=== PATIENT | female | born 1945 | race Caucasian/White ===

== ENCOUNTER 2020-08-29 07:16 | Observation (INO) | payer MEDICARE, BC ==
[~2020-08-29] VITALS: Ht 165.1 cm; Wt 97.1 kg
[2020-08-29] MEDS ORDERED: ONDANSETRON 4MG/2ML VIAL IV ONE (07:40)
[2020-08-29] MEDS ORDERED: NS 1,000 ML IV SCH (07:40)
[2020-08-29] MEDS ORDERED: fentaNYL 100 MCG/2 ML INJECTION (J3010) IV ONE ×2 (07:40→08:50)
[2020-08-29] MEDS ORDERED: FAMOTIDINE INJ 20MG/2ML VIAL (S0028 PER 1) IVP ONE (07:40)
[2020-08-29 08:19] LABS: BASO % 0.4 % (0.0-1.0); EOS % 0.1 % (0.0-3.0); HEMATOCRIT 35.5 % (36.0-47.0); HEMOGLOBIN 11.7 g/dl (12.0-15.5); LYMPH # 0.6 10^3/uL (1.5-5.0); LYMPH % 5.3 % (24.0-44.0); MEAN CORPUSCULAR HEMOGLOBIN 32.2 pg (27.0-33.0); MEAN CORPUSCULAR VOLUME 97.8 fl (80.0-96.0); MONO # 0.2 10^3/uL (0.0-0.8); MONO % 1.7 % (2.0-8.0); NEUTROPHILS # 10.2 10^3/uL (1.5-8.5); NEUTROPHILS % 91.7 % (36.0-66.0); PLATELET COUNT, AUTOMATED 191 10^3/uL (150-450); RED BLOOD COUNT 3.63 10^6/uL (4.00-5.40); WHITE BLOOD COUNT 11.1 10^3/uL (4.0-10.0)
[2020-08-29] MEDS ORDERED: ULOR80TA PO (08:41)
[2020-08-29] MEDS ORDERED: CARV25TA PO (08:41)
[2020-08-29] MEDS ORDERED: CLONI1TA PO (08:41)
[2020-08-29] MEDS ORDERED: PANT40TA29 PO (08:41)
[2020-08-29] MEDS ORDERED: ATOR40TA75 PO (08:41)
[2020-08-29] MEDS ORDERED: ECOT81TA5 PO (08:41)
[2020-08-29] MEDS ORDERED: AMLO1TAB25 PO (08:41)
[2020-08-29] MEDS ORDERED: [UNRECOGNIZED DRUG - OTHER] OU (08:41)
[2020-08-29] MEDS ORDERED: B-12100021 PO (08:41)
[2020-08-29] MEDS ORDERED: FLUO10CA16 PO (08:41)
[2020-08-29] MEDS ORDERED: THYR60TA PO (08:41)
[2020-08-29] MEDS ORDERED: TELM1TAB37 PO (08:41)
[2020-08-29] MEDS ORDERED: BUPR150T5 PO (08:41)
[2020-08-29 08:45] LABS: ALBUMIN 4.1 GM/DL (3.2-5.2); BILIRUBIN,DIRECT 0.1 MG/DL (0.0-0.2); BILIRUBIN,TOTAL 0.5 MG/DL (0.2-1.0); TOTAL PROTEIN 7.8 GM/DL (6.4-8.2)
[2020-08-29] MEDS ORDERED: ISOVUE-370 76% 100ML VIAL As Ordered ONE (08:51)
--- NOTE | 2020-08-29 09:41 | REP ---
INDICATION: abd pain. COMPARISON: None TECHNIQUE: Axial contrast-enhanced images from the lung bases to the pubic symphysis using 100 cc Isovue 370 intravenous contrast material. Coronal and sagittal reformations obtained.. This CT examination was performed using the following dose reduction techniques: Automated exposure control, adjustment of mA and/or kv according to the patient's size, and the use of iterative reconstruction technique. FINDINGS: Liver, spleen, pancreas, gallbladder, and bilateral adrenal glands are normal. Right kidney includes 2.6 cm cyst. Left kidney includes 1 cm cyst and 13 mm intrarenal calculus adjacent to a small area of cortical scarring. Mild bilateral perinephric stranding is likely chronic although correlation with urinalysis is recommended to exclude pyelonephritis. The enteric system including stomach, small, and large bowel appears normal. No evidence for obstruction or acute inflammatory process. Few scattered colonic and sigmoid diverticula noted without acute diverticulitis. Pelvis demonstrates normal bladder and evidence for prior hysterectomy. No ascites. No free air. No intraperitoneal or retroperitoneal adenopathy. Atherosclerotic changes to the aorta without aneurysm or dissection. Musculoskeletal structures are intact and without acute osseous abnormality. IMPRESSION: 1. No obvious acute abdominopelvic pathology appreciated. 2. Renal changes as described above likely chronic although correlation with urinalysis may be warranted to exclude pyelonephritis. <Electronically signed by Allan Naylor > 08/29/20 0937
[2020-08-29] MEDS ORDERED: METOCLOPRAMIDE INJ 10MG/2ML VIAL (J2765 PER 1) IV ONE (12:20)
[2020-08-29] MEDS ORDERED: NS 1,000 ML IV ONE (15:55)
[2020-08-29] MEDS ORDERED: BUPR150T12 PO (16:07)
[2020-08-29] MEDS ORDERED: PANTOPRAZOLE 40MG VIAL (C9113 PER 1) IV ONE (16:25)
[2020-08-29] MEDS ORDERED: CARVedilol 12.5 MG TAB PO ONE (16:25)
[2020-08-29] MEDS ORDERED: GI COCKTAIL 50ML BTL(HYOSCYAMINE/MAALOX/LIDOCAINE VISCOUS)(1:3:1) PO PRN (16:25)
[2020-08-29] MEDS ORDERED: SUCRALFATE SUSP 1GM/10ML UD PO ONE (16:25)
[2020-08-29] MEDS ORDERED: GI COCKTAIL 50ML BTL(HYOSCYAMINE/MAALOX/LIDOCAINE VISCOUS)(1:3:1) PO ONE (16:25)
[2020-08-29] MEDS ORDERED: PERCOCET 5MG/325MG TAB PO PRN (16:30)
[2020-08-29] MEDS ORDERED: HYDROMORPHONE HCL 0.5 MG/ 0.5 ML SYRINGE (J1170 PER 1) IV ONE (16:30)
[2020-08-29] MEDS ORDERED: ENOXAPARIN 40MG/0.4ML SYRINGE (J1650 PER 10MG) SC ONE (16:30)
[2020-08-29] MEDS ORDERED: PERCOCET 5MG/325MG TAB PO ONE (16:30)
[2020-08-29] MEDS ORDERED: NALOXONE INJ 0.4MG/1ML VIAL (J2310 PER 1MG) IV PRN (16:30)
--- NOTE | 2020-08-29 17:02 | ECGEPIP ---
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
--- NOTE | 2020-08-29 17:17 | REP ---
INDICATION: epigastric abd pain COMPARISON: None. TECHNIQUE: PA and lateral. FINDINGS: The mediastinum and cardiac silhouette are normal. The lung gage are clear and without acute consolidation, effusion, or pneumothorax. The skeletal structures are intact and normal. IMPRESSION: No acute cardiopulmonary process. <Electronically signed by Allan Naylor > 08/29/20 [id number]
[2020-08-29] MEDS ORDERED: ALLE12TA31 PO (17:49)
[2020-08-29] MEDS ORDERED: TRAM50TA2 PO (17:49)
[2020-08-29] MEDS ORDERED: SODI3.5O3 OU (17:49)
[2020-08-29] MEDS ORDERED: ONDANSETRON 4MG/2ML VIAL IV PRN (19:45)
[2020-08-29] MEDS ORDERED: KCL 10MEQ IN D5/0.45NS 1000ML 1,000 ML IV SCH (20:00)
[2020-08-29] MEDS: SUCRALFATE 1 GM TAB PO SCH ×2 (21:00→22:53)
[2020-08-29] MEDS: PROMETHAZINE INJ 25 MG/ML VIAL (J2550) IV SCH ×2 (22:52→23:00)
[2020-08-29 22:53] VITALS: BP 180/80
[2020-08-29] MEDS: KETOROLAC 30 MG/ML 1ML VIAL IV SCH (23:44)
[2020-08-29] MEDS: METOCLOPRAMIDE INJ 10MG/2ML VIAL (J2765 PER 1) IV SCH (23:45)
[2020-08-30] MEDS: PANTOPRAZOLE 40MG VIAL (C9113 PER 1) IV SCH ×2 (01:01→08:54)
[2020-08-30] MEDS: METOCLOPRAMIDE INJ 10MG/2ML VIAL (J2765 PER 1) IV SCH ×3 (01:22→14:00)
[2020-08-30] MEDS: CARVedilol 12.5 MG TAB PO SCH ×2 (01:23→08:57)
[2020-08-30 02:00] VITALS: BP 164/74
[2020-08-30] MEDS: KETOROLAC 30 MG/ML 1ML VIAL IV SCH ×3 (02:00→14:00)
[2020-08-30] MEDS: PROMETHAZINE INJ 25 MG/ML VIAL (J2550) IV SCH (05:40)
[2020-08-30] MEDS ORDERED: PROMETHAZINE 25 MG TAB PO PRN (05:55)
[2020-08-30 06:00] VITALS: BP 156/55
[2020-08-30 07:13] LABS: HEMATOCRIT 31.3 % (36.0-47.0); HEMOGLOBIN 10.2 g/dl (12.0-15.5); MEAN CORPUSCULAR HEMOGLOBIN 32.6 pg (27.0-33.0); MEAN CORPUSCULAR HGB CONC 32.6 g/dl (32.0-36.5); PLATELET COUNT, AUTOMATED 147 10^3/uL (150-450); RED BLOOD COUNT 3.13 10^6/uL (4.00-5.40); WHITE BLOOD COUNT 10.4 10^3/uL (4.0-10.0)
[2020-08-30 07:40] LABS: CALCIUM LEVEL 8.1 MG/DL (8.8-10.2); CREATININE FOR GFR 1.06 MG/DL (0.55-1.30); GLOMERULAR FILTRATION RATE 53.7 (>39); POTASSIUM SERUM 3.6 MEQ/L (3.5-5.1)
[2020-08-30] MEDS ORDERED: NS 1,000 ML IV ONE (08:40)
[2020-08-30] MEDS ORDERED: traMADol 50 MG TAB PO PRN (08:40)
[2020-08-30] MEDS ORDERED: CARA1TAB6 PO (08:44)
[2020-08-30] MEDS: SUCRALFATE 1 GM TAB PO SCH ×2 (08:55→13:19)
[2020-08-30 08:56] VITALS: BP 156/55
[2020-08-30 08:58] LABS: C REACTIVE PROTEIN QUANTITATIV 0.32 MG/DL (0.00-0.30)
[2020-08-30] MEDS ORDERED: buPROPion **XL** TABLET 150MG (WELLBUTRIN XL) PO SCH (09:00)
[2020-08-30] MEDS ORDERED: ENOXAPARIN 40MG/0.4ML SYRINGE (J1650 PER 10MG) SC SCH (09:00)
[2020-08-30] MEDS ORDERED: cloNIDine 0.1MG TABLET PO SCH (09:00)
[2020-08-30] MEDS ORDERED: FLUoxetine 10 MG CAP PO SCH (09:00)
[2020-08-30] MEDS ORDERED: THYROID 30 MG TAB PO SCH (09:00)
[2020-08-30] MEDS ORDERED: PANTOPRAZOLE 40MG TAB (PROTONIX) PO SCH (09:00)
[2020-08-30 10:06] LABS: ERYTHROCYTE SEDIMENTATION RATE 36 mm/hr (0-30)
--- NOTE | 2020-08-30 11:29 | HPE ---
HISTORY AND PHYSICAL DATE OF ADMISSION: 08/29/2020 CHIEF COMPLAINT: Nausea, vomiting, diarrhea, abdominal pain. HISTORY OF PRESENT ILLNESS: This is a 74-year-old female visiting from [place] who presented to the emergency room with complaints of nausea and vomiting 10-15 times last night around midnight into this morning, with crampy abdominal pain that started in the epigastric region and radiates down to the bilateral lower quadrants accompanied with watery, nonbloody, nonmucusy diarrhea times one. Patient has had prior episode of nausea and vomiting in the past, but not to this extent. She describes epigastric discomfort as crampy and sharp at times, lasting for a few hours, unchanged by position. No medications taken at home, without fever or chills. Patient denies any bright red blood per rectum, melena or black tarry stools. Patient has not eaten any uncooked seafood or meat and no one in the family has similar symptoms. Patient has prior colonoscopy, which was unremarkable, from her technical solutions engineer in [place], named Dr. Santos, phone number is . On arrival, patient was found to be tachycardic, ventricular rate 121, but sinus rhythm, afebrile, slight white count of 11.1. CT abdomen and pelvis has no acute intraabdominal pathology. Despite being given intravenous Zofran, Reglan and Fentanyl, patient continues to have pain and persistent nausea. Urinalysis is negative. Hospitalist was asked to admit the patient. PAST MEDICAL HISTORY: 1. Hypercholesterolemia. 2. Hypertension. 3. Gastroesophageal reflux disease. 4. Hypothyroidism. 5. Nephrolithiasis. 6. Depression. 7. Vitamin B deficiency. 8. Uterine cancer status post chemotherapy and radiation. 9. 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 PAST SURGICAL HISTORY: 1. Appendectomy. 2. Lithotripsy. 3. Right knee replacement. 4. Dilation and curettage times two. 5. Total abdominal hysterectomy due to uterine cancer. 6. Carotid endarterectomy times two. 7. Back surgery. ALLERGIES: PENICILLIN, SULFA, ADHESIVE TAPE, CLINDAMYCIN, COLCHICINE, FLAGYL, TETRACYCLINE. HOME MEDICATIONS: - Coreg 25 mg twice a day - Norvasc 10 mg daily - telmisartan 80 mg daily - Synthroid 60 mg daily - Protonix 40 mg twice a day - fluoxetine 10 mg daily - Uloric 80 mg daily - clonidine 0.1 mg twice a day - bupropion 150 mg daily - atorvastatin 40 mg daily - aspirin 81 mg daily SOCIAL HISTORY: Denies any cigarettes or recreational drug use. 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 She drinks 2-3 glasses of wine per week. Patient is currently vacationing. She is a FULL CODE. Nathalia Luciano is her healthcare proxy, phone number . FAMILY HISTORY: Noncontributory due to advanced age. REVIEW OF SYSTEMS: A 10-point system negative aside from positive findings in the history of present illness (HPI). PHYSICAL EXAMINATION: VITAL SIGNS: Temperature 98.9, pulse 122 sinus, respiratory rate 16, blood pressure 199/80, 96% on room air. GENERAL: Patient is awake, alert, oriented times three. HEENT: No pallor, icterus or jaundice. Face is symmetric. Tongue is midline. No jugular venous distention, (JVD) or thyromegaly. Moist mucous membranes. No carotid bruits. Prior endarterectomy scars noted. LUNGS: Diminished. Clear to auscultation. No wheezing or rales. HEART: S1, S2. Sinus rhythm with tachycardia. ABDOMEN: Obese, soft. Tender epigastric and bilateral lower quadrants. No rebound or guarding. No hepatosplenomegaly. EXTREMITIES: No cyanosis or clubbing. LABORATORY DATA: White count 11.1, hemoglobin 11.7, hematocrit 35, platelet count 191. Sodium 140, potassium 3.9, chloride 103, bicarbonate 22, BUN 32, creatinine 1.2, glucose 186 ionized calcium 4.7. Total bilirubin 0.5, direct bilirubin 0.1, AST 17, ALT 18, alkaline phosphatase 97, total protein 7.8, albumin 4.1, lipase 59. Urinalysis 3+ protein, 1+ blood, negative nitrites, negative leukocyte esterase, zero WBCs, negative bacteria. IMAGING STUDIES: CT abdomen and pelvis 08/29/2020: No obvious acute abdominal pathology appreciated. Renal changes as described, likely chronic. Liver, spleen, pancreas, gallbladder and bilateral adrenal glands normal. Right kidney includes a 2.6 cm cyst. Left kidney includes 1 cm cyst and 13 mm intrarenal calculus adjacent to a small area of cortical scarring. Mild bilateral perinephric stranding is likely chronic, although correlation with ua to exclude pyelonephritis. Enteric system is normal. Few scattered colonic and sigmoid diverticula without diverticulitis. Normal bladder. Prior hysterectomy. No ascites. No free air. ASSESSMENT: This is a 74-year-old female admitted due to acute onset of nausea, vomiting and diarrhea at home with no electrolyte abnormalities, acute kidney injury or metabolic acidosis on routine blood tests, with persistent abdominal pain, unable to be discharged from the emergency room. IMPRESSION: 1. Intractable nausea, vomiting and diarrhea. Possible gastroenteritis. Respiratory panel is pending. Patient will be admitted to the medical/surgical floor, given intravenous fluids, antiemetics, intravenous (IV) Protonix twice a day. Carafate, Reglan and Phenergan intravenously. Percocet one tablet every 6 hours for severe pain. Status post one dose GI cocktail and GI cocktail every 6 hours for comfort. 2. Uncontrolled hypertension due to severe pain. Patient may be resumed back on her home dose of Coreg, clonidine and telmisartan. Monitor patient while on IV Toradol to prevent kidney injury with recent contrasted study. Continue use of telmisartan with nausea, vomiting and diarrhea. 3. Diarrhea. Check gastrointestinal (GI) panel. If polymerase chain reaction (PCR) for Clostridium (C) difficile is negative, antimotility drugs if needed. 4. Sinus tachycardia. Obtain a 12-leak EKG. Rule out atrial fibrillation/atrial flutter. Continue on home dose of Coreg for heart rate control. 5. History of uterine cancer status post chemotherapy and radiation. Total abdominal hysterectomy. No acute issues. 6. History of kidney stones with negative urinalysis. Creatinine is normal. Continue with IV fluids and pain medications for now. 7. Gastroesophageal reflux disease. Obtain records from her technical solutions engineer, Dr. Santos, . Continue with Carafate, proton pump inhibitor (PPI) twice a day. 8. Hypercholesterolemia. Continue with statin. 9. Obesity. Body mass index (BMI) of 33.4 complicating care. Narcan as needed to reverse CO2 narcosis or respiratory acidosis secondary to opioids. 10. Deep venous thrombosis (DVT) prophylaxis with Lovenox. 11. CODE STATUS: FULL CODE. Healthcare proxy is Nathalia Luciano . [facility]
--- NOTE | 2020-08-30 12:57 | DSES ---
DISCHARGE SUMMARY DATE OF ADMISSION: 08/29/2020 DATE OF DISCHARGE: 08/30/2020 PRINCIPAL DIAGNOSES: 1. Lactic acidosis. 2. Dehydration. 3. Diarrhea. 4. Intractable nausea and vomiting secondary to gastroenteritis. DISCHARGE MEDICATIONS: 1. Carafate 1 gram a.c. and h.s. 2. Norvasc 10 daily. 3. Aspirin 81 daily. 4. Atorvastatin 40 daily. 5. Bupropion 150 daily. 6. Coreg 25 b.i.d. 7. Clonidine 0.1 b.i.d. 8. Vitamin B 1000 mcg daily. 9. Uloric 80 mg q. h.s. 10. Luz Maria one tablet b.i.d. as needed. 11. Fluoxetine 10 daily. 12. Protonix 40 b.i.d. 13. Sodium chloride q. h.s. 14. Telmisartan 80 q. h.s. 15. Synthroid 60 daily. 16. Tramadol 50 b.i.d. as needed for pain. HOSPITAL COURSE: This 74-year-old female visiting the area presented with nausea, vomiting, and one episode of diarrhea. Complains of chest tightness and epigastric discomfort admitted for further evaluation. CT abdomen and pelvis had no acute intraabdominal pathology. Chest x-ray had no acute cardiopulmonary process. The patient was found to have lactic acidosis. Urinalysis was negative. She denied any dysuria, urgency, or frequency. Respiratory panel negative. She had no episodes of diarrhea and was given intravenous and anti-emetics. Overnight, the patient had uncontrolled blood pressure and tachycardic. Pressure 227/115. OTHER DISCHARGE DIAGNOSES: Hypertensive urgency. She was resumed back on her home medications of Clonidine, Coreg, and telmisartan with good control down to 156/55. DISCHARGE PHYSICAL EXAMINATION: VITAL SIGNS: Temperature 98.7, pulse 85, respiratory rate 20, blood pressure 156/55, 95% on room air. GENERAL: The patient is awake, alert, and oriented to person, place, and time. Answering questions appropriately. NECK: No JVD. No thyromegaly. No cervical lymphadenopathy. LUNGS: Clear to auscultation. No wheezing, rales, or rhonchi. HEART: S1, S2. Sinus rhythm. ABDOMEN: Soft, nontender, and nondistended with positive bowel sounds x4 quadrants. No rebound or guarding. EXTREMITIES: Chronic edema. DIAGNOSTIC STUDIES: Laboratory data, imaging studies, and microbiology, please see the chart. Time spent on discharge 30 minutes.
[2020-08-30 14:00] VITALS: BP 154/64
[2020-08-30] MEDS ORDERED: TELMISARTAN 20 MG TAB PO SCH (21:00)
[2020-08-30] MEDS ORDERED: SODIUM CHLORIDE 5% OPHTH OINT 3.5 GM OU SCH (21:00)
[2020-08-30] MEDS ORDERED: FEBUXOSTAT 40 MG TABLET (ULORIC) PO SCH (21:00)
[2020-08-30] MEDS ORDERED: ASPIRIN 81MG ENTERIC TABLET PO SCH (21:00)
[2020-08-30] MEDS ORDERED: ATORVASTATIN 20 MG TAB PO SCH (21:00)
== END 2020-08-30 15:28 | disposition home or self-care (01) ==
LOC: M ED 07:16 → EDBD 07:16 → M ED INP 07:17 → M MSPAV 22:53
PROVIDERS: ADMIT General Practice; ATTEND General Practice
DX: K52.9 Noninfective gastroenteritis and colitis, unspecified (principal); E87.2 Acidosis; E86.0 Dehydration; I16.0 Hypertensive urgency; R00.0 Tachycardia, unspecified; R07.89 Other chest pain; R10.13 Epigastric pain; E78.00 Pure hypercholesterolemia, unspecified; I10 Essential (primary) hypertension; K21.9 Gastro-esophageal reflux disease without esophagitis; E03.9 Hypothyroidism, unspecified; Z87.442 Personal history of urinary calculi; F32.9 Major depressive disorder, single episode, unspecified; E53.8 Deficiency of other specified B group vitamins; Z85.42 Personal history of malignant neoplasm of other parts of uterus; Z92.21 Personal history of antineoplastic chemotherapy; Z92.3 Personal history of irradiation; G62.0 Drug-induced polyneuropathy; Z79.899 Other long term (current) drug therapy; Z79.82 Long term (current) use of aspirin; Z88.0 Allergy status to penicillin; Z88.2 Allergy status to sulfonamides; Z88.1 Allergy status to other antibiotic agents; Z88.8 Allergy status to other drugs, medicaments and biological substances; Z91.048 Other nonmedicinal substance allergy status
CPT/HCPCS: 36415; 71046; 74177; 80047; 80048; 80076; 81001; 83605; 83690; 84145; 85025; 85027; 85652; 86140; 87798; 93005; 93041; 96361; 96366; 96367; 96372; 96374; 96375; 96376; 97116; 97161; 99285; C9113; G0378; J1170; J1650; J1885; J2405; J2765; J3010; Q9967